=== PATIENT | female | born 2000 | race Two or more races ===

== ENCOUNTER 2018-12-19 17:03 | Emergency (ER) | payer BC ==
--- NOTE | 2018-12-19 18:36 | ED ---
Lower Extremity - HPI Summary HPI Summary: 18-year-old male presents with swelling to right blackwood today. States she was doing her aerobatic routine when she noticed the swelling. States it was not painful. She states swelling has been decreasing. No numbness or tingling. now has a little bit of pain. able to ambulate without difficulty. No numbness or tingling. This has never happened before. Denies any calf pain. no chest pain shortness breath. No family history of blood clots. Is not on control. is not on blood thinners. no recent travel. - History of Current Complaint Chief Complaint: EDExtremityLower Stated Complaint: LEG SWELLING PER PT Time Seen by Provider: 12/19/18 17:47 Pain Intensity: 2 - Allergies/Home Medications Allergies/Adverse Reactions: Allergies Allergy/AdvReac Type Severity Reaction Status Date / Time No Known Allergies Allergy Verified 12/19/18 17:10 PMH/Surg Hx/FS Hx/Imm Hx Endocrine/Hematology History: Denies: Hx Anticoagulant Therapy Respiratory History: Denies: Hx Asthma - Immunization History Immunizations Up to Date: Yes Infectious Disease History: No Infectious Disease History: Denies: Traveled Outside the [place] in Last 30 Days - Family History Known Family History: Positive: Non-Contributory - Social History Alcohol Use: None Substance Use Type: Reports: None Smoking Status (MU): Never Smoked Tobacco Review of Systems Negative: Fever Negative: Chest Pain Negative: Shortness Of Breath Positive: Edema All Other Systems Reviewed And Are Negative: Yes Physical Exam Triage Information Reviewed: Yes Vital Signs On Initial Exam: Initial Vitals Temp Pulse Resp BP Pulse Ox 99 F 97 16 114/72 96 12/19/18 17:07 12/19/18 17:07 12/19/18 17:07 12/19/18 17:07 12/19/18 17:07 Vital Signs Reviewed: Yes Appearance: Positive: Well-Appearing Skin: Positive: Warm, Dry, Other - ecchymosis to right blackwood with no erythema Head/Face: Positive: Normal Head/Face Inspection Eyes: Positive: Normal, Conjunctiva Clear ENT: Positive: Pharynx normal Respiratory/Lung Sounds: Positive: Clear to Auscultation, Breath Sounds Present Cardiovascular: Positive: Normal, RRR Musculoskeletal: Positive: Strength/ROM Intact - right leg, Other - swelling to blackwood on right leg that is nontender, good pulses Neurological: Positive: Normal Psychiatric: Positive: Normal Diagnostics - Vital Signs Vital Signs Temp Pulse Resp BP Pulse Ox 12/19/18 17:07 99 F 97 16 114/72 96 - Laboratory Lab Statement: Any lab studies that have been ordered have been reviewed, and results considered in the medical decision making process. Lower Extremity Course/Dx - Course Course Of Treatment: 18-year-old male presents with swelling to right blackwood today. States she was doing her aerobatic routine when she noticed the swelling. States it was not painful. She states swelling has been decreasing. No numbness or tingling. now has a little bit of pain. able to ambulate without difficulty. No numbness or tingling. This has never happened before. Denies any calf pain. no chest pain shortness breath. No family history of blood clots. Is not on control. is not on blood thinners. no recent travel. On exam has been swelling near the top of right blackwood. No tenderness. Has slight ecchymosis the area. no erythema or warmth Could be hematoma vs superficial swelling. Told to place ice and elevate. Patient understands and agrees with plan. - Diagnoses Differential Diagnosis/HQI/PQRI: Positive: Contusion, Infection, Other - hematoma Provider Diagnoses: Leg swelling Discharge ED - Sign-Out/Discharge Documenting (check all that apply): Patient Departure Patient Received Moderate/Deep Sedation with Procedure: No - Discharge Plan Condition: Good Disposition: HOME Patient Education Materials: R.I.C.E. Treatment (ED) Referrals: No Primary Care Phys,NOPCP [Primary Care Provider] - Additional Instructions: Take Tylenol or ibuprofen every 6 hours as needed for pain Apply ice, rest, elevate Follow up with [facility] if no improvement Return to ED if develop any new or worsening symptoms - Billing Disposition and Condition Condition: GOOD Disposition: Home - Attestation Statements Provider Attestation: I was available for consultation for this patient. I did not evaluate the patient or participate in any medical decision making or disposition decisions unless I am specifically named in the chart as having consulted on the patient. If I have consulted on the patient, please see my own ED note on the patient encounter. Meenu Colindres MD
[2018-12-19 19:04] VITALS: BP 100/65
== END 2018-12-19 19:08 | disposition home or self-care (01) ==
LOC: ED 17:03
DX: M79.89 Other specified soft tissue disorders (principal)
CPT/HCPCS: 99281